=== PATIENT | male | born 2000 | race Hispanic/Latino ===

== ENCOUNTER 2020-03-16 08:21 | Emergency (ER) | payer OTHER ==
[~2020-03-16] VITALS: Ht 167.6 cm; Wt 72.7 kg
[2020-03-16] MEDS ORDERED: IBUPROFEN 600MG TAB PO ONE (09:00)
[2020-03-16] MEDS ORDERED: ACETAMINOPHEN 325 MG TAB PO ONE (09:00)
--- NOTE | 2020-03-16 09:39 | REPVR ---
PROCEDURE INFORMATION: Exam: XR Right Tibia and Fibula Exam date and time: 03/16/2020 9:19 AM Age: 19 years old Clinical indication: Pain; Lower leg; Bilateral; Additional info: Pain - ware splints TECHNIQUE: Imaging protocol: XR Right tibia and fibula. Views: 2 views. COMPARISON: No relevant prior studies available. FINDINGS: Bones/joints: Normal. Soft tissues: Normal. IMPRESSION: No acute findings. PROCEDURE INFORMATION: Exam: XR Left Tibia and Fibula Exam date and time: 03/16/2020 9:19 AM Age: 19 years old Clinical indication: Pain; Lower leg; Bilateral; Additional info: Pain - ware splints TECHNIQUE: Imaging protocol: XR Left tibia and fibula. Views: 2 views. COMPARISON: No relevant prior studies available. FINDINGS: Bones/joints: Normal. Soft tissues: Normal. IMPRESSION: No acute findings. Electronically signed by: Aman Castañeda On 03/16/2020 09:38:50 AM
[2020-03-16 09:52] VITALS: BP 132/74
== END 2020-03-16 09:59 | disposition home or self-care (01) ==
LOC: M ED 08:21
DX: S86.891A Other injury of other muscle(s) and tendon(s) at lower leg level, right leg, initial encounter (principal); S86.892A Other injury of other muscle(s) and tendon(s) at lower leg level, left leg, initial encounter; M79.661 Pain in right lower leg; M79.662 Pain in left lower leg; F17.200 Nicotine dependence, unspecified, uncomplicated

== ENCOUNTER → 2021-03-08 | Outpatient (REF) ==
--- NOTE | 2021-03-08 10:58 | REP ---
INDICATION: PAIN COMPARISON: None. TECHNIQUE: AP and lateral views of the right knee. FINDINGS: Osseous structures, joint spaces, and surrounding soft tissues appear normal. No evidence for acute or healed injury. No effusion. No subcutaneous emphysema or foreign body. No soft tissue swelling. IMPRESSION: Normal right knee radiographs. <Electronically signed by Brian Mendiola > 03/08/21 105
--- NOTE | 2021-03-08 10:59 | REP ---
INDICATION: PAIN. COMPARISON: None. TECHNIQUE: Four views of the left wrist are provided. FINDINGS: Four views of the left wrist demonstrate C shaped metallic clamps applied across the intercarpal joint space fusing the luno-capitate Luno-hamate and triquetral-hamate articulations. The navicula has been resected. There are accessory ossicles in the soft tissues of the navicular resection bed. There are tiny accessory ossicles in the radiocarpal articulation region. Bones joints and soft tissues are otherwise unremarkable. IMPRESSION: Status post carpal fusion as above. <Electronically signed by Georgi Rowland > 03/08/21 [id number]
== END ==
LOC: M PLAIMG 10:11
PROVIDERS: ATTEND Internal Medicine
DX: Z00.00 Encounter for general adult medical examination without abnormal findings (principal)